=== PATIENT | female | born 1950 | race Caucasian/White ===

== ENCOUNTER 2019-08-18 15:28 | Emergency (ER) | payer MEDICARE, OTHER ==
[~2019-08-18] VITALS: Ht 175.3 cm; Wt 83.0 kg
[2019-08-18 15:59] VITALS: BP 147/88
[2019-08-18] MEDS ORDERED: FLUORESCEIN OPHTHALMIC 1 MG STRIP ONE (16:13)
[2019-08-18] MEDS ORDERED: PROPARACAINE OPHTH 0.5%, 15ML ONE (16:14)
--- NOTE | 2019-08-18 16:20 | NUR ---
PT IN EYE EXAM ROOM. SITTING UP, NAD NOTED. PT REPORTS L EYE PAIN "PRESSURE" X THIS AM. CATARACT SX 07/[address] HOGUE. +PHOTOPHOBIA/BLURRED VISION/TEARING/MILD [place].
--- NOTE | 2019-08-18 17:45 | NUR ---
AWAITING RETURN PAGE FROM [facility]. PT UPDATED AND DEMONSTRATES UNDERSTANDING.
[2019-08-18] MEDS ORDERED: CYCLOPENTOLATE OPHTH SOLN 1%, 15ML LEFTEYE ONE (18:06)
== END 2019-08-18 18:51 | disposition home or self-care (01) ==
LOC: ED 16:28
DX: H20.9 Unspecified iridocyclitis (principal); R51 Headache
CPT/HCPCS: 99283